=== PATIENT | female | born 1995 | race Caucasian/White ===

== ENCOUNTER 2023-06-02 23:13 | Emergency (ER) | payer OTHER, SELFPAY ==
[2023-06-02 23:31] VITALS: BP 118/71; PULSE 89; RESP 26; TEMP 36.6; O2SAT 100; BMI 40.2
--- NOTE | 2023-06-02 23:45 | ED.CHESTPAIN ---
HPI - Chest Pain General Time Seen by Provider: 23:46 Date Seen: 06/02/23 Chief Complaint: Chest Pain Stated Complaint: Chest and Back Pain Time Seen by Provider: 06/02/23 23:41 Source: patient, RN notes reviewed and old records reviewed Mode of arrival: ambulatory Limitations: no limitations History of Present Illness HPI narrative: 27-year-old female who presents today with chest pain and back pain starting about 8 hours prior to coming emergency department. Patient does not remember exactly what she was doing when the pain started. She has sharp pain in left side of her chest that stab sore to the back. Worse with breathing, slight cough. Denies abdominal pain, nausea, vomiting, diarrhea. Has not taken anything for her pain. Denies possibility of . Related Data Home Medications Medication Instructions Recorded Confirmed buspirone 30 mg tablet 30 mg PO BID 06/29/22 06/02/23 fluoxetine 60 mg tablet 60 mg PO QAM 06/29/22 06/02/23 lorazepam 1 mg tablet 1 mg PO QDAY PRN 06/29/22 06/02/23 metoprolol succinate 25 mg tab PO 06/29/22 01/17/23 tablet,extended release 24 hr trazodone 50 mg tablet 25 mg PO QDAY 06/29/22 06/02/23 trazodone 50 mg tablet 50 mg PO QDAY 06/29/22 01/17/23 Previous Rx's Medication Instructions Recorded nystatin 100,000 unit/gram topical 1 applic topical BID 14 days #30 01/17/23 powder grams Allergies Allergy/AdvReac Type Severity Reaction Status Date / Time tree nut Allergy Mild Anaphylaxis Verified 06/02/23 23:35 [facility] Medical History Cough ?R05.9 - Cough, unspecified (ICD-10) Social History Smoking Status: Never smoker Do you use any of these nicotine containing products: None Second hand tobacco smoke exposure: No How often do you have a drink containing alcohol: never AUDIT-C Alcohol total score: 0 Non-prescribed substance use: denies use Exam Narrative Exam Narrative: General: Well-developed and well-nourished, no acute distress Head: Atraumatic and normocephalic Eyes: Pupils are equal reactive, extraocular motions intact, conjunctiva clear ENT: External nose and ears are normal, posterior pharynx without erythema or exudate Neck: No midline cervical tenderness, full spontaneous range of motion the neck, trachea midline, no adenopathy Heart: Regular rate and rhythm no murmurs or thrills Lungs: Clear to auscultation bilaterally without wheezes or crackles. Left anterior chest wall tenderness which reproduces symptoms Abdomen: Soft, nontender, nondistended with active bowel sounds Musculoskeletal: Left mid and low thoracic paraspinous tenderness reproduces complaint Neurologic: Awake, alert, and oriented x3, no gross focal neurologic deficits, cranial nerves intact as tested Psych: Mood and affect are appropriate Skin: No rashes Const Vital Signs, click to edit/add: Vital Signs - 24 hr 06/02/23 23:31 Temperature 97.9 F Pulse Rate [Pulse Oximeter] 89 Respiratory Rate 26 H Blood Pressure [Right Upper Arm] 118/71 Pulse Oximetry 100 Oxygen Delivery Method Room Air Course Course ED Course: Patient seen examined, prior records reviewed. Patient presents today with chest pain radiating to the back. Worse with breathing. Wells criteria low risk and PERC negative. Reproducible on palpation. Symptoms most likely represent musculoskeletal pain, labs and x-ray ordered. Toradol ordered for pain. Reevaluation(s) Time of Reevaluation #1: 00:20 Reevaluation #1: Chest xray independently interpreted by me does not demonstrate acute hemothorax, pneumothorax, infiltrate, or effusion. Time of Reevaluation #2: 01:07 Reevaluation #2: Labs independently interpreted by me with negative troponin, negative D-dimer. Patient stable for discharge with outpatient follow-up. Vital Signs Vital signs: Initial Vital Signs Temperature 97.9 F 06/02/23 23:31 Temperature Source Temporal Artery Scan 06/02/23 23:31 Pulse Rate 89 06/02/23 23:31 Respiratory Rate 26 H 06/02/23 23:31 Blood Pressure 118/71 06/02/23 23:31 Blood Pressure Mean 86 06/02/23 23:31 Blood Pressure Position Sitting 06/02/23 23:31 Pulse Oximetry 100 06/02/23 23:31 Oxygen Delivery Method Room Air 06/02/23 23:31 Vital Signs Temperature 97.9 F 06/02/23 23:31 Pulse Rate 89 06/02/23 23:31 Respiratory Rate 26 H 06/02/23 23:31 Blood Pressure 118/71 06/02/23 23:31 Pulse Oximetry 100 06/02/23 23:31 Oxygen Delivery Method Room Air 06/02/23 23:31 Temperature 97.9 F 06/02/23 23:31 Pulse Rate 89 06/02/23 23:31 Respiratory Rate 26 H 06/02/23 23:31 Blood Pressure 118/71 06/02/23 23:31 Pulse Oximetry 100 06/02/23 23:31 Oxygen Delivery Method Room Air 06/02/23 23:31 MDM - Chest Pain Lab Data Labs: Lab Results 06/03/23 06/03/23 Range/Units 00:35 00:50 D-Dimer Quant (PE/DVT) < 0.27 (0.00-0.50) ug/ml Sodium 139 (135-149) mmol/L Potassium 3.4 L (3.6-5.1) mmol/L Chloride 104 (96-114) mmol/L Carbon Dioxide 26 (20-32) mmol/L Anion Gap 9 (7-15) mEq/L BUN 7 (5-24) mg/dL Creatinine 0.6 (0.5-1.5) mg/dL Estimated Creat Clear 149.61 Estimated GFR 125 ml/min Glucose 123 H (60-115) mg/dL Calcium 8.4 (8.4-10.6) mg/dL POC Troponin I 0.01 (0.01-0.04) ng/ml ECG Data Attestation: I personally reviewed and interpreted this ECG as follows: ECG interpretation date: 06/03/23 ECG interpretation time: 00:47 Prior ECG tracings: not available for review Interpretation: Sinus rhythm rate 68, no acute ST elevations or depressions, [place] 166 no prior for comparison. Discharge Plan Discharge Clinical Impression: Chest pain Patient Disposition: Home w/ Parent or Adult Condition: Stable Instructions: Chest Wall Pain (ED) Additional Instructions: Take Tylenol and ibuprofen as needed for chest and back pain Activity Level: Activity as Tolerated Discharge Diet: Regular Prescriptions: No Action metoprolol succinate 25 mg tablet extended release 24 hr PO trazodone 50 mg tablet 25 mg PO QDAY trazodone 50 mg tablet 50 mg PO QDAY buspirone 30 mg tablet 30 mg PO BID fluoxetine 60 mg tablet 60 mg PO QAM lorazepam 1 mg tablet 1 mg PO QDAY PRN nystatin 100,000 unit/gram powder 1 applic topical BID 14 Days Qty: 30 1RF Follow Up/Referrals: Provider,Not a Local [Referring] - Stand Alone Forms: My[facility] Info Instructions
--- NOTE | 2023-06-02 23:53 | CRLHL7_ITS ---
For Patients: As a result of the Century Cures Act, medical imaging exams and procedure reports are released immediately into your electronic medical record. You may view this report before your referring provider. If you have questions, please contact your health care provider. INDICATION: Chest pain. TECHNIQUE: Chest 1 views. COMPARISON: None. FINDINGS: Cardiovasculature and mediastinum: Heart size and vasculature are normal in caliber and appearance. Lungs and pleural spaces: Lungs are clear. No sign of infiltrate or mass. No sign of pleural effusion. No pneumothorax. Bones and soft tissues: No significant findings. IMPRESSION: No acute or significant findings. Dictated by Angel Estrada MD @ 06/03/2023 1:30:02 AM (Electronically Signed)
[2023-06-03] MEDS: KETOROLAC 15 MG/ML inj IVP (00:39)
[2023-06-03 00:58] LABS: Chloride* 104 mmol/L (96-114); Potassium* 3.4 mmol/L (3.6-5.1); Sodium* 139 mmol/L (135-149)
[2023-06-03 01:01] LABS: Anion Gap 9 mEq/L (7-15); Blood Urea Nitrogen* 7 mg/dL (5-24); Carbon Dioxide* 26 mmol/L (20-32); Creatinine* 0.6 mg/dL (0.5-1.5); Est. Creatinine Clearance* 149.61; Estimated Glomerular Filt Rate 125 ml/min
[2023-06-03 01:02] LABS: Calcium* 8.4 mg/dL (8.4-10.6); Glucose* 123 mg/dL (60-115)
[2023-06-03 01:02] LABS: Troponin, Point-of-Care* 0.01 ng/ml (0.01-0.04)
[2023-06-03 01:03] LABS: D Dimer Quantitative* < 0.27 ug/ml (0.00-0.50)
== END 2023-06-03 01:25 | disposition home or self-care (01) ==
PROVIDERS: Emergency Provider Family Medicine; PCP Physician Assistant
DX: R07.9 Chest pain, unspecified (principal)
CPT/HCPCS: 36415; 71045; 80048; 84484; 85379; 93005; 96374; 99284; 99285; J1885